=== PATIENT | female | born 1975 | race African-American/Black ===

== ENCOUNTER 2023-12-12 03:56 | Day surgery (SDC) | payer OTHER ==
[2023-12-05 15:02] VITALS: BMI 34.9
[~2023-12-12 03:56] MED LIST: BUPIVACAINE HCL/PF 0.75% 10 ML VIAL NR ONE
[2023-12-12] MEDS ORDERED: LIDOCAINE HCL/PF 1% SDV 5ML VIAL ONE (07:13)
[2023-12-12] MEDS ORDERED: BUPIVACAINE HCL/PF 0.75% 10 ML VIAL ONE (07:13)
[2023-12-12] MEDS ORDERED: TRIAMCINOLONE ACET 40MG/1ML VIAL ONE (07:13)
[2023-12-12] MEDS ORDERED: LIDOCAINE HCL 1% PRESERVATIVE FREE - 30ML VIAL IJ ONE (10:21)
[2023-12-12] MEDS ORDERED: BUPIVACAINE HCL/PF 0.75% 10 ML VIAL NR ONE (10:25)
[2023-12-12 10:39] VITALS: PULSE 70; TEMP 98.5
[2023-12-12] MEDS ORDERED: ACETAMINOPHEN 500 MG TABLET (FP) PO PRN (11:18)
[2023-12-12 12:49] VITALS: BP 135/65; RESP 20
== END 2023-12-12 13:36 | disposition home or self-care (01) ==
LOC: JASU-SURG 03:56
PROVIDERS: ATTEND Pain Medicine Pain Medicine
PROC: 3E0T33Z Introduction of Anti-inflammatory into Peripheral Nerves and Plexi, Percutaneous Approach (ICD-10-PCS; 2023-12-12)
PROC: 3E0T3BZ Introduction of Anesthetic Agent into Peripheral Nerves and Plexi, Percutaneous Approach (ICD-10-PCS; principal; 2023-12-12 10:15)
DX: M47.816 Spondylosis without myelopathy or radiculopathy, lumbar region (principal)
CPT/HCPCS: 76000-TC-FY; 81025

== ENCOUNTER 2024-01-02 05:10 | Day surgery (SDC) | payer OTHER ==
[2023-12-30 18:14] VITALS: BMI 34.9
[2024-01-02] MEDS ORDERED: BUPIVACAINE HCL/PF 0.75% 10 ML VIAL ONE (07:36)
[2024-01-02] MEDS ORDERED: LIDOCAINE HCL/PF 1% SDV 5ML VIAL ONE (07:36)
[2024-01-02] MEDS ORDERED: ACETAMINOPHEN 500 MG TABLET (FP) PO PRN (13:20)
[2024-01-02] MEDS: LIDOCAINE 1% P/F 10 MG/ML VIAL INF ONE (13:32)
[2024-01-02] MEDS: BUPIVACAINE HCL/PF 0.75% 10 ML VIAL NR ONE ×2 (13:32→13:39)
[2024-01-02 13:55] VITALS: RESP 18
[2024-01-02 14:44] VITALS: BP 123/81; PULSE 67; TEMP 98
== END 2024-01-02 14:35 | disposition home or self-care (01) ==
LOC: JASU-SURG 05:10
PROVIDERS: ATTEND Pain Medicine Pain Medicine
PROC: 3E0T3BZ Introduction of Anesthetic Agent into Peripheral Nerves and Plexi, Percutaneous Approach (ICD-10-PCS; principal; 2024-01-02 12:45)
DX: M47.816 Spondylosis without myelopathy or radiculopathy, lumbar region (principal)
CPT/HCPCS: 76000-TC-FY; 81025

== ENCOUNTER 2024-01-23 04:36 | Day surgery (SDC) | payer OTHER ==
[2024-01-19 09:14] VITALS: BMI 34.9
[2024-01-23] MEDS ORDERED: LIDOCAINE HCL/PF 1% SDV 5ML VIAL ONE (07:36)
[2024-01-23] MEDS ORDERED: BUPIVACAINE HCL/PF 0.5% (5MG/ML) 10 ML VIAL ONE (07:36)
[2024-01-23] MEDS ORDERED: DEXAMETHASONE SOD PHOSPHATE 10 MG/1 ML VIAL ONE ×2 (07:36→13:05)
[2024-01-23] MEDS ORDERED: LIDOCAINE HCL/PF 2% SDV 5ML VIAL ONE ×2 (07:36→13:37)
[2024-01-23] MEDS ORDERED: ACETAMINOPHEN 500 MG TABLET (FP) PO PRN (11:35)
[2024-01-23 12:39] VITALS: RESP 18
[2024-01-23] MEDS: BUPIVACAINE HCL/PF 0.75% 10 ML VIAL NR ONE (14:36)
[2024-01-23] MEDS: BUPIVACAINE HCL/PF 0.5% (5MG/ML) 10 ML VIAL IJ ONE (14:36)
[2024-01-23] MEDS: DEXAMETHASONE SOD PHOSPHATE 10 MG/1 ML VIAL IVPUSH ONE ×2 (14:36)
[2024-01-23] MEDS: LIDOCAINE 1% P/F 10 MG/ML VIAL INF ONE ×2 (14:36)
[2024-01-23] MEDS: LIDOCAINE HCL/PF 2% SDV 5ML VIAL INF ONE ×2 (14:36)
[2024-01-23 15:06] VITALS: BP 121/76; PULSE 65; TEMP 98.4
== END 2024-01-23 15:55 | disposition home or self-care (01) ==
LOC: JASU-SURG 04:36
PROVIDERS: ATTEND Pain Medicine Pain Medicine
PROC: 015B3ZZ Destruction of Lumbar Nerve, Percutaneous Approach (ICD-10-PCS; principal; 2024-01-23 13:00)
DX: M47.816 Spondylosis without myelopathy or radiculopathy, lumbar region (principal)
CPT/HCPCS: 76000-TC-FY; 81025; J1100